=== PATIENT | female | born 1940 | race Caucasian/White ===

== ENCOUNTER 2016-09-10 10:07 | Day surgery (SDC) ==
[2016-09-10] MEDS ORDERED: LIDOCAINE 1% 20 ML MDV ID ONE (11:15)
[2016-09-10] MEDS ORDERED: DIPRIVAN 20 ML VIAL IVP ONE (11:50)
[2016-09-10] MEDS ORDERED: VERSED ONE (11:50)
[2016-09-10 13:18] VITALS: BP 154/72; TEMP 98.2
--- NOTE | 2016-09-11 10:05 | OP ---
INDICATIONS FOR PROCEDURE: 75-year-old female presents for a screening colon exam. She is also scheduled for endoscopy evaluation of long-standing heartburn. She has been having intermittent over the last couple of months. She notes that since she has cut out some chocolate and other food that she has been doing better. MEDICATIONS: SEE ANESTHESIA NOTES. PROCEDURE: 1. ENDOSCOPY. 2. COLONOSCOPY. REPORT: The risks, benefits, alternatives and limitations were discussed in detail with the patient. Informed consent was obtained. After adequate sedation was achieved, the video endoscope was introduced in the posterior pharynx and esophagus under direct vision and easily advanced down to the second portion of the duodenum. I then slowly withdrew the scope examining the mucosa quite carefully. The duodenal mucosa appeared unremarkable as did the duodenal bulb. The antrum and body were relatively unremarkable. The scope was retroflexed to look at the cardia and fundus which was unremarkable. The scope was anteflexed and withdrawn back through the esophagus which was unremarkable. The patient tolerated the procedure well with stable vital signs and pulse oximetry throughout. The patient's bed was turned and digital rectal exam revealed good tone, no masses. The colonoscope was introduced in the rectum and advanced under direct visual guidance to the cecum. The cecum was identified by the appendiceal orifice and IC valve. She had a long redundant tortuous colon lumen but I was able to reach the cecum with a little bit of external pressure. I then slowly withdrew the scope in a circumferential manner examining the mucosa quite carefully. The colonic mucosa was unremarkable other than multiple small and large mouth diverticula scattered throughout the transverse and left colon. No abnormalities were noted other than diverticula including on forward and retroflex views in the proximal and distal colon. I looked on the proximal and distal side of folds and flexures as best as possible. The prep was adequate. There was a little bit of retained stool in the transverse and left colon from where the diverticula emptied out but this was washed and suctioned off as best as possible. The withdrawal time was 6 minutes. The patient tolerated the procedure well with stable vital signs and pulse oximetry throughout. IMPRESSION: 1. Normal upper endoscopy exam. 2. Diverticulosis. RECOMMENDATION: 1. High fiber diet. 2. Office visit as needed. 3. Strict reflux precautions. 4. Future screening examinatins on an as needed basis. 5. Will see her back in the office as needed. CC: DR. JON WEST
== END 2016-09-10 13:40 | disposition home or self-care (01) ==
LOC: SURG 10:07
PROVIDERS: ATTEND Internal Medicine Gastroenterology
DX: Z12.11 Encounter for screening for malignant neoplasm of colon (principal); K57.30 Diverticulosis of large intestine without perforation or abscess without bleeding; R12 Heartburn
CPT/HCPCS: 00810; 43235; G0121